=== PATIENT | male | born 1990 | race Caucasian/White ===

== ENCOUNTER 2018-03-06 15:51 | Inpatient (IN) | payer OTHER ==
[2018-03-06 15:52] VITALS: BMI 51.6
[2018-03-06] MEDS ORDERED: Sodium Chloride 0.9% 1,000 ML IV ONE (17:52)
--- NOTE | 2018-03-06 18:01 | C.PDOC ---
History Of Present Illness 27 years old male with PMHx of diverticulitis presents to ED for complaints of LLQ abdominal pain. Patient states he is currently on antibiotics. Patient also reports symptoms have been persistent. Denies fever, or any other complaints. Time Seen by Provider: 03/06/18 17:50 Chief Complaint (Nursing): Abdominal Pain History Per: Patient History/Exam Limitations: no limitations Current Symptoms Are (Timing): Still Present Location Of Pain/Discomfort: LLQ Radiation Of Pain To:: None Associated Symptoms: denies: Fever, Chills, Nausea, Vomiting, Diarrhea Exacerbating Factors: None Alleviating Factors: None Last Bowel Movement: Today Recent travel outside of the [place]: No Past Medical History Reviewed: Historical Data, Nursing Documentation, Vital Signs Vital Signs: Last Vital Signs Temp 98.2 F 03/06/18 16:33 Pulse 85 03/06/18 16:33 Resp 18 03/06/18 16:33 BP Pulse Ox 99 03/06/18 16:33 - Medical History PMH: Diverticulitis Family History: States: Unknown Family Hx - Social History Hx Alcohol Use: No Hx Substance Use: No - Immunization History Hx Tetanus Toxoid Vaccination: No Hx Influenza Vaccination: No Hx Pneumococcal Vaccination: No Review Of Systems Constitutional: Negative for: Fever, Chills Gastrointestinal: Positive for: Abdominal Pain (LLQ ). Negative for: Nausea, Vomiting, Diarrhea Skin: Negative for: Rash Neurological: Negative for: Weakness, Numbness Physical Exam - Physical Exam Appears: Non-toxic, No Acute Distress, Other (Morbidly obese ) Skin: Normal Color, Warm, Dry, No Rash Head: Atraumatic, Normacephalic Eye(s): bilateral: Normal Inspection, PERRL, EOMI Oral Mucosa: Moist Neck: Normal ROM, Supple Chest: Symmetrical, No Tenderness Cardiovascular: Rhythm Regular, No Murmur Respiratory: Normal Breath Sounds, No Rales, No Rhonchi, No Wheezing Gastrointestinal/Abdominal: Soft, Tenderness (LLq ) Extremity: Normal ROM Extremity: Bilateral: Atraumatic, Normal Color And Temperature, Normal ROM Pulses: Left Radial: Normal, Right Radial: Normal Neurological/Psych: Oriented x3, Normal Speech Gait: Steady ED Course And Treatment - Laboratory Results Result Diagrams: 03/06/18 18:41 03/06/18 18:41 O2 Sat by Pulse Oximetry: 99 (RA) Pulse Ox Interpretation: Normal Medical Decision Making Medical Decision Making: diverticulitis- failrue of outpt Plan: * IV Fluids * Tylenol * Blood work * Urinalysis diverticultis failure of outpt needs iv antibiotics Disposition - Disposition Disposition: HOSPITALIZED Disposition Time: 23:54 Condition: STABLE - Clinical Impression Clinical Impression: Diverticulitis - Scribe Statement The provider has reviewed the documentation as recorded by the Deanibe Arin Wray All medical record entries made by the Deanibluis were at my direction and personally dictated by me. I have reviewed the chart and agree that the record accurately reflects my personal performance of the history, physical exam, medical decision making, and the department course for this patient. I have also personally directed, reviewed, and agree with the discharge instructions and disposition. Decision To Admit - Pt Status Changed To: Hospital Disposition Of: Inpatient - Admit Certification Admit to Inpatient:: After my assessment, the patient will require hospitalization for at least two midnights. This is because of the severity of symptoms shown, intensity of services needed, and/or the medical risk in this patient being treated as an outpatient. - InPatient: Physician Admission Certification:: needs iv antibiotics - . Bed Request Type: Regular Admitting Physician: Stefano Perez Patient Diagnosis: Diverticulitis
[2018-03-06] MEDS ORDERED: Sodium Chloride 0.9% 1,000 ML ONE (18:27)
[2018-03-06 18:45] LABS: BASO # 0.1 K/uL (0.0-0.2); BASO % 0.5 % (0.0-2.0); EOS # 0.1 K/uL (0.0-0.7); EOS % 0.5 % (0.0-4.0); HEMOGLOBIN 13.9 g/dL (12.0-18.0); LYMPH # 1.4 K/uL (1.0-4.3); LYMPH % 12.7 % (20.0-40.0); MEAN CELL VOLUME 79.6 fL (80.0-94.0); MEAN CORPUSCULAR HGB CONC 32.6 g/dL (33.0-37.0); MEAN PLATELET VOLUME 7.5 fL (7.2-11.7); MONO # 0.6 K/uL (0.0-0.8); MONO % 5.5 % (0.0-10.0); NEUT # 8.8 K/uL (1.8-7.0); NEUT % 80.8 % (50.0-75.0); RBC 5.35 Mil/uL (4.40-5.90); RED CELL DISTRIBUTION WIDTH 14.5 % (11.5-14.5); WHITE BLOOD COUNT 10.9 K/uL (4.8-10.8)
[2018-03-06 18:53] LABS: INR 1.5
[2018-03-06 19:10] LABS: ALB/GLOB RATIO 1.1 (1.0-2.1); ALT/SGPT 21 U/L (21-72); AST/SGOT 25 U/L (17-59); BLOOD UREA NITROGEN 9 mg/dL (9-20); CALCIUM 8.5 mg/dl (8.6-10.4); GFR NON-AFRICAN AMERICAN > 60; LIPASE 15 U/L (23-300)
[2018-03-06 19:12] LABS: SQUAMOUS EPITHIAL < 1 /hpf (0-5); URINE BILIRUBIN NEGATIVE (NEGATIVE); URINE BLOOD NEGATIVE (NEGATIVE); URINE CLARITY Clear (Clear); URINE COLOR Yellow (YELLOW); URINE GLUCOSE (UA) NORMAL (Normal); URINE LEUKOCYTE ESTERASE TRACE Leu/uL (Negative); URINE PROTEIN NEGATIVE (NEGATIVE); URINE UROBILINOGEN NORMAL mg/dL (0.2-1.0)
[2018-03-06] MEDS ORDERED: Iodixanol 320 MG/ML 100 ML BOTTLE IV ONE (20:08)
[2018-03-06] MEDS ORDERED: Piperacillin/Tazobact 3.375 gm 100 ML IVPB STA (21:13)
[2018-03-06] MEDS ORDERED: Dextrose 5%/0.45% NS 1,000 ML IV ONE (21:35)
[2018-03-06] MEDS ORDERED: Piperacillin/Tazobact 3.375 gm 100 ML IVPB ONE (21:35)
[2018-03-06] MEDS: Dextrose 5%/0.45% NS 1,000 ML IV SCH (21:56)
[2018-03-06] MEDS: Piperacillin/Tazobact 3.375 GM in Sodium Chloride 100 ML IVPB SCH (23:13)
[2018-03-06] MEDS ORDERED: metroNIDAZOLE IV 500 mg/100 ml 500 MG/100 ML BAG ONE (23:20)
[2018-03-06] MEDS: metroNIDAZOLE IV 500 mg/100 ml 500 MG/100 ML BAG IVPB SCH (23:27)
[2018-03-07] MEDS: Dextrose 5%/0.45% NS 1,000 ML IV SCH ×4 (03:04→17:30)
[2018-03-07] MEDS: Piperacillin/Tazobact 3.375 GM in Sodium Chloride 100 ML IVPB SCH ×3 (05:19→21:18)
[2018-03-07] MEDS: metroNIDAZOLE IV 500 mg/100 ml 500 MG/100 ML BAG IVPB SCH ×3 (05:30→21:17)
[2018-03-07 08:20] LABS: BASO % 0.4 % (0.0-2.0); EOS # 0.1 K/uL (0.0-0.7); EOS % 0.7 % (0.0-4.0); HEMOGLOBIN 12.6 g/dL (12.0-18.0); LYMPH # 1.7 K/uL (1.0-4.3); LYMPH % 15.9 % (20.0-40.0); MEAN CORPUSCULAR HEMOGLOBIN 26.1 pg (27.0-31.0); MEAN CORPUSCULAR HGB CONC 33.1 g/dL (33.0-37.0); MEAN PLATELET VOLUME 7.8 fL (7.2-11.7); MONO # 0.8 K/uL (0.0-0.8); NEUT # 7.8 K/uL (1.8-7.0); RBC 4.81 Mil/uL (4.40-5.90); RED CELL DISTRIBUTION WIDTH 14.5 % (11.5-14.5); WHITE BLOOD COUNT 10.4 K/uL (4.8-10.8)
[2018-03-07 08:27] VITALS: RESP 20
--- NOTE | 2018-03-07 08:53 | CT ---
Date of service: 03/06/2018 PROCEDURE: CT Abdomen and Pelvis with contrast HISTORY: llq pain ho of diverticulitis COMPARISON: None. TECHNIQUE: Contrast dose: Radiation dose: Total exam DLP = 1295.45 mGy-cm. This CT exam was performed using one or more of the following dose reduction techniques: Automated exposure control, adjustment of the mA and/or kV according to patient size, and/or use of iterative reconstruction technique. FINDINGS: LOWER THORAX: Unremarkable. LIVER: Unremarkable. No gross lesion or ductal dilatation. GALLBLADDER AND BILE DUCTS: Unremarkable. PANCREAS: Unremarkable. No gross lesion or ductal dilatation. SPLEEN: Unremarkable. ADRENALS: Unremarkable. No mass. KIDNEYS AND URETERS: Unremarkable. No hydronephrosis. No solid mass. VASCULATURE: Unremarkable. No aortic aneurysm. No aortic atherosclerotic calcification or mural plaque present. BOWEL: Extensive sigmoid colon diverticulosis with extensive infiltration in the pericolonic fat consistent with acute diverticulitis. APPENDIX: Normal appendix. PERITONEUM: Unremarkable. No free fluid. No free air. LYMPH NODES: Unremarkable. No enlarged lymph nodes. BLADDER: Unremarkable. REPRODUCTIVE: Unremarkable. BONES: No acute fracture. OTHER FINDINGS: None. IMPRESSION: Extensive sigmoid colon diverticulosis with extensive infiltration in the pericolonic fat consistent with acute diverticulitis.
[2018-03-07 09:05] LABS: ALB/GLOB RATIO 1.1 (1.0-2.1); ALBUMIN 3.4 g/dL (3.5-5.0); ALT/SGPT 22 U/L (21-72); AST/SGOT 20 U/L (17-59); BLOOD UREA NITROGEN 7 mg/dL (9-20); CALCIUM 7.8 mg/dl (8.6-10.4); GFR NON-AFRICAN AMERICAN > 60
--- NOTE | 2018-03-07 12:17 | CP.PCM.HP ---
History of Present Illness - History of Present Illness History of Present Illness: 27 years old male with no previous history complaining of left quadrant pain. Patient presented to [facility] where CAT scan of the abdomen was done which shows diverticulitis of the sigmoid colon. Patient was given by mouth Cipro and Flagyl and discharged home. Patient's pain increased in intensity and severity with crampy diarrhea and patient presented back to [facility]. His repeat CAT scan of the abdomen showed sigmoid diverticulitis with 6 significant sigmoid diverticulosis. Patient is now admitted in [facility] for IV antibiotics and manage acute diverticulitis. Present on Admission - Present on Admission Any Indicators Present on Admission: No Past Patient History - Past Medical History & Family History Past Medical History?: No - Past Social History Smoking Status: Former Smoker - CARDIAC Hx Cardiac Disorders: No - PULMONARY Hx Respiratory Disorders: No Hx Asthma: No - NEUROLOGICAL Hx Neurological Disorder: No - HEENT Hx HEENT Problems: No - RENAL Hx Chronic Kidney Disease: No - ENDOCRINE/METABOLIC Hx Endocrine Disorders: No - HEMATOLOGICAL/ONCOLOGICAL Hx Blood Disorders: No - INTEGUMENTARY Hx Dermatological Problems: No - MUSCULOSKELETAL/RHEUMATOLOGICAL Hx Musculoskeletal Disorders: No Hx Falls: No - GASTROINTESTINAL Hx Diverticulitis: Yes (Diagnosed one week ago) - GENITOURINARY/GYNECOLOGICAL Hx Genitourinary Disorders: No - PSYCHIATRIC Hx Substance Use: No - SURGICAL HISTORY Hx Surgeries: No - ANESTHESIA Hx Anesthesia: No Meds Allergies/Adverse Reactions: Allergies Allergy/AdvReac Type Severity Reaction Status Date / Time No Known Allergies Allergy Verified 03/06/18 16:32 Physical Exam - Constitutional Appears: Well - Head Exam Head Exam: ATRAUMATIC, NORMAL INSPECTION, NORMOCEPHALIC - Eye Exam Eye Exam: EOMI, Normal appearance, PERRL - ENT Exam ENT Exam: Mucous Membranes Moist, Normal Exam - Neck Exam Neck exam: Positive for: Normal Inspection - Respiratory Exam Respiratory Exam: Clear to Auscultation Bilateral, NORMAL BREATHING PATTERN - Cardiovascular Exam Cardiovascular Exam: REGULAR RHYTHM - GI/Abdominal Exam GI & Abdominal Exam: Normal Bowel Sounds, Tenderness (left lower quadrant). absent: Rebound - Rectal Exam Rectal Exam: Deferred - Neurological Exam Neurological exam: Alert, CN II-XII Intact, Normal Gait, Oriented x3, Reflexes Normal - Psychiatric Exam Psychiatric exam: Normal Affect Results - Vital Signs Recent Vital Signs: Last Vital Signs Temp 98.1 F 03/07/18 07:00 Pulse 96 H 03/07/18 07:00 Resp 20 03/07/18 07:00 BP 142/81 03/07/18 07:00 Pulse Ox 100 03/07/18 07:00 - Labs Result Diagrams: 03/07/18 08:00 03/07/18 08:00 Labs: Laboratory Results - last 24 hr 03/06/18 03/06/18 03/06/18 18:41 18:41 18:41 WBC 10.9 H RBC 5.35 Hgb 13.9 Hct 42.6 MCV 79.6 L MCH 26.0 L MCHC 32.6 L RDW 14.5 Plt Count 335 MPV 7.5 Neut % (Auto) 80.8 H Lymph % (Auto) 12.7 L [place] % (Auto) 5.5 Eos % (Auto) 0.5 Baso % (Auto) 0.5 Neut # (Auto) 8.8 H Lymph # (Auto) 1.4 [place] # (Auto) 0.6 Eos # (Auto) 0.1 Baso # (Auto) 0.1 PT 16.0 H INR 1.5 APTT 37 H Sodium 136 Potassium 4.2 Chloride 99 Carbon Dioxide 30 Anion Gap 12 BUN 9 Creatinine 0.6 L Est GFR ( Amer) > 60 Est GFR (Non-Af Amer) > 60 Random Glucose 107 Calcium 8.5 L Total Bilirubin 0.5 AST 25 ALT 21 Alkaline Phosphatase 93 Total Protein 7.6 Albumin 4.0 Globulin 3.7 Albumin/Globulin Ratio 1.1 Lipase 15 L Urine Color Urine Clarity Urine pH Ur Specific [place] Urine Protein Urine Glucose (UA) Urine Ketones Urine Blood Urine Nitrate Urine Bilirubin Urine Urobilinogen Ur Leukocyte Esterase Urine WBC (Auto) Urine RBC (Auto) Ur Squamous Epith Cells 03/06/18 03/07/18 03/07/18 19:07 08:00 08:00 WBC 10.4 RBC 4.81 Hgb 12.6 Hct 38.0 MCV 79.0 L MCH 26.1 L MCHC 33.1 RDW 14.5 Plt Count 298 MPV 7.8 Neut % (Auto) 75.0 Lymph % (Auto) 15.9 L [place] % (Auto) 8.0 Eos % (Auto) 0.7 Baso % (Auto) 0.4 Neut # (Auto) 7.8 H Lymph # (Auto) 1.7 [place] # (Auto) 0.8 Eos # (Auto) 0.1 Baso # (Auto) 0.0 PT INR APTT Sodium 137 Potassium 4.3 Chloride 104 Carbon Dioxide 27 Anion Gap 11 BUN 7 L Creatinine 0.7 L Est GFR ( Amer) > 60 Est GFR (Non-Af Amer) > 60 Random Glucose 102 Calcium 7.8 L Total Bilirubin 0.7 AST 20 ALT 22 Alkaline Phosphatase 73 Total Protein 6.4 Albumin 3.4 L Globulin 3.0 Albumin/Globulin Ratio 1.1 Lipase Urine Color Yellow Urine Clarity Clear Urine pH 5.0 Ur Specific [place] 1.023 Urine Protein Negative Urine Glucose (UA) Normal Urine Ketones Negative Urine Blood Negative Urine Nitrate Negative Urine Bilirubin Negative Urine Urobilinogen Normal Ur Leukocyte Esterase Trace Urine WBC (Auto) 1 Urine RBC (Auto) 1 Ur Squamous Epith Cells < 1 Assessment & Plan (1) Sigmoid diverticulitis Status: Acute (2) Sigmoid diverticulosis Status: Chronic
--- NOTE | 2018-03-07 22:19 | CP.PCM.CON ---
History of Present Illness - History of Present Illness History of Present Illness: INFECTIOUS DISEASE CONSULT; REASON FOR CONSULT;-DIVERTICULITIS, FAILED OUTPATIENT TREATMENT. HPI 27 years old male with no previous history, complaining of left LOWER quadrant pain. Patient presented to [facility] where CAT scan of the abdomen was done which shows diverticulitis of the sigmoid colon. Patient was given by mouth Cipro and Flagyl and discharged home. Patient's pain increased in intensity and severity with crampy diarrhea and patient presented back to [facility]. His repeat CAT scan of the abdomen showed sigmoid diverticulitis with significant sigmoid diverticulosis. Patient is now admitted in [facility] for IV antibiotics and manage acute diverticulitis. PATIENT DENIES HISTORY OF FEVER OR CHILLS. PATIENT DENIES ANY BLACK STOOLS OR MELANOTIC STOOLS. INFECTIOUS DISEASE CONSULTATION REQUESTED BY PMD FOR ACUTE DIVERTICULITIS. PATIENT ALSO GIVES HISTORY OFF SIMILAR SYMPTOMS 2 YEARS AGO WHICH RESOLVED BY THEMSELVES. PATIENT ADMITS THAT HIS DIET IS NOT SO GOOD AND HE HAS BEEN EATING OUTSIDE [facility]. PMH: Diverticulitis Family History: States: Unknown Family Hx - Social History Hx Alcohol Use: No Hx Substance Use: No - Immunization History Hx Tetanus Toxoid Vaccination: No Hx Influenza Vaccination: No Hx Pneumococcal Vaccination: No ALLERGY; NKA Review of Systems - Constitutional Constitutional: absent: Chills, Fever - EENT Eyes: absent: Floaters Nose/Mouth/Throat: Dry Mouth. absent: Mouth Lesions - Cardiovascular Cardiovascular: Dyspnea. absent: Chest Pain - Gastrointestinal Gastrointestinal: Abdominal Pain, Bloating, Cramping, Diarrhea, Excessive Flatus. absent: Nausea, Vomiting - Genitourinary Genitourinary: absent: Dysuria - Neurological Neurological: absent: Dizziness, Headaches - Endocrine Endocrine: absent: Fatigue - Hematologic/Lymphatic Hematologic: As Per HPI. absent: Easy Bleeding, Easy Bruising Past Patient History - Past Medical History & Family History Past Medical History?: No - Past Social History Smoking Status: Former Smoker - CARDIAC Hx Cardiac Disorders: No - PULMONARY Hx Respiratory Disorders: No Hx Asthma: No - NEUROLOGICAL Hx Neurological Disorder: No - HEENT Hx HEENT Problems: No - RENAL Hx Chronic Kidney Disease: No - ENDOCRINE/METABOLIC Hx Endocrine Disorders: No - HEMATOLOGICAL/ONCOLOGICAL Hx Blood Disorders: No - INTEGUMENTARY Hx Dermatological Problems: No - MUSCULOSKELETAL/RHEUMATOLOGICAL Hx Musculoskeletal Disorders: No Hx Falls: No - GASTROINTESTINAL Hx Diverticulitis: Yes (Diagnosed one week ago) - GENITOURINARY/GYNECOLOGICAL Hx Genitourinary Disorders: No - PSYCHIATRIC Hx Substance Use: No - SURGICAL HISTORY Hx Surgeries: No - ANESTHESIA Hx Anesthesia: No Meds Allergies/Adverse Reactions: Allergies Allergy/AdvReac Type Severity Reaction Status Date / Time No Known Allergies Allergy Verified 03/06/18 16:32 - Medications Medications: Current Medications Dextrose/Sodium Chloride (Dextrose 5%/0.45% Ns 1000 Ml) 1,000 mls @ 100 mls/hr IV .Q10H [facility] Last Admin: 03/07/18 13:06 Dose: 100 mls/hr Metronidazole (Flagyl) 500 mg in 100 mls @ 100 mls/hr IVPB Q8H [facility]; Protocol Last Admin: 03/07/18 21:17 Dose: 100 mls/hr Piperacillin Sod/Tazobactam (Sod 3.375 gm/ Sodium Chloride) 100 mls @ 200 mls/hr IVPB Q8H [facility]; Protocol Last Admin: 03/07/18 21:18 Dose: 200 mls/hr Ketorolac Tromethamine (Toradol) 30 mg IVP Q6H PRN PRN Reason: Pain, moderate (4-7) Last Admin: 03/07/18 11:03 Dose: 30 mg Morphine Sulfate (Morphine) 2 mg IVP Q4 PRN PRN Reason: Pain, severe (8-10) Last Admin: 03/07/18 21:12 Dose: 2 mg Physical Exam - Constitutional Appears: No Acute Distress - Head Exam Head Exam: NORMAL INSPECTION - Eye Exam Eye Exam: EOMI, PERRL - ENT Exam ENT Exam: Normal Oropharynx - Neck Exam Neck exam: Positive for: Normal Inspection - Respiratory Exam Respiratory Exam: Clear to Auscultation Bilateral, NORMAL BREATHING PATTERN - Cardiovascular Exam Cardiovascular Exam: REGULAR RHYTHM, +S1, +S2 - GI/Abdominal Exam GI & Abdominal Exam: Diminished Bowel Sounds, Soft, Tenderness (LLQ). absent: Distended, Guarding - Extremities Exam Extremities exam: Positive for: normal capillary refill, pedal pulses present. Negative for: calf tenderness, pedal edema - Neurological Exam Neurological exam: Alert, CN II-XII Intact, Normal Gait, Oriented x3, Reflexes Normal - Psychiatric Exam Psychiatric exam: Normal Mood - Skin Skin Exam: Normal Color, Warm Results - Vital Signs Recent Vital Signs: Last Vital Signs Temp 98.8 F 03/07/18 15:13 Pulse 97 H 03/07/18 15:13 Resp 20 03/07/18 15:13 BP 119/82 03/07/18 15:13 Pulse Ox 96 03/07/18 15:13 - Labs Result Diagrams: 03/08/18 08:07 03/08/18 08:07 Labs: Laboratory Results - last 24 hr 03/07/18 03/07/18 08:00 08:00 WBC 10.4 RBC 4.81 Hgb 12.6 Hct 38.0 MCV 79.0 L MCH 26.1 L MCHC 33.1 RDW 14.5 Plt Count 298 MPV 7.8 Neut % (Auto) 75.0 Lymph % (Auto) 15.9 L [place] % (Auto) 8.0 Eos % (Auto) 0.7 Baso % (Auto) 0.4 Neut # (Auto) 7.8 H Lymph # (Auto) 1.7 [place] # (Auto) 0.8 Eos # (Auto) 0.1 Baso # (Auto) 0.0 Sodium 137 Potassium 4.3 Chloride 104 Carbon Dioxide 27 Anion Gap 11 BUN 7 L Creatinine 0.7 L Est GFR ( Amer) > 60 Est GFR (Non-Af Amer) > 60 Random Glucose 102 Calcium 7.8 L Total Bilirubin 0.7 AST 20 ALT 22 Alkaline Phosphatase 73 Total Protein 6.4 Albumin 3.4 L Globulin 3.0 Albumin/Globulin Ratio 1.1 - Imaging and Cardiology CT scan - abdomen Status: Report reviewed by me (SEE REPORT) Assessment & Plan (1) Sigmoid diverticulitis Status: Acute (2) Diverticulosis large intestine w/o perforation or abscess w/o bleeding Status: Acute (3) Abdominal pain Status: Acute (4) Morbid obesity Status: Acute - Assessment and Plan (Free Text) Plan: PLAN; PANCULTURE; NPO CONTINUE IV ZOSYN 3.375MG IVPB Q8HRLY 03/06/17. CONTINUE IV FLAGYL 500MG IVPB Q8HRLY 03/06/17. STOOLS FOR OB X1 F/U CULTURES TO ADJUST IV ABX. WILL FOLLOW ALONG W YOU. THANKYOU.
[2018-03-08] MEDS: Piperacillin/Tazobact 3.375 GM in Sodium Chloride 100 ML IVPB SCH ×3 (04:49→21:34)
[2018-03-08] MEDS: Dextrose 5%/0.45% NS 1,000 ML IV SCH ×4 (04:51→23:30)
[2018-03-08] MEDS: metroNIDAZOLE IV 500 mg/100 ml 500 MG/100 ML BAG IVPB SCH ×3 (05:58→21:33)
[2018-03-08 08:15] LABS: BASO % 0.3 % (0.0-2.0); EOS # 0.1 K/uL (0.0-0.7); EOS % 1.1 % (0.0-4.0); HEMOGLOBIN 12.9 g/dL (12.0-18.0); LYMPH # 1.9 K/uL (1.0-4.3); LYMPH % 19.7 % (20.0-40.0); MEAN CELL VOLUME 79.3 fL (80.0-94.0); MEAN CORPUSCULAR HGB CONC 32.7 g/dL (33.0-37.0); MEAN PLATELET VOLUME 7.6 fL (7.2-11.7); MONO # 0.8 K/uL (0.0-0.8); MONO % 8.3 % (0.0-10.0); NEUT # 6.7 K/uL (1.8-7.0); NEUT % 70.6 % (50.0-75.0); RBC 4.96 Mil/uL (4.40-5.90); RED CELL DISTRIBUTION WIDTH 14.3 % (11.5-14.5); WHITE BLOOD COUNT 9.5 K/uL (4.8-10.8)
[2018-03-08 08:53] LABS: ALB/GLOB RATIO 1.1 (1.0-2.1); ALBUMIN 3.4 g/dL (3.5-5.0); ALT/SGPT 17 U/L (21-72); AST/SGOT 23 U/L (17-59); BLOOD UREA NITROGEN 5 mg/dL (9-20); CALCIUM 8.2 mg/dl (8.6-10.4); GFR NON-AFRICAN AMERICAN > 60
--- NOTE | 2018-03-08 12:00 | CP.PCM.PN ---
Subjective - Date & Time of Evaluation Date of Evaluation: 03/08/18 Time of Evaluation: 11:59 - Subjective Subjective: CHIEF COMPLAINTS TODAY : Last night patient had increased abdominal pain requiring increased frequency of narcotic IV medication ROS. HEENT : N. Resp : No cough, wheezing ,pleuritic CP ,or hemoptysis Cardio : No anginal CP, PND, orthopnea, palpitation GI : No, n/v ,diarrhea or GI bleeding . PET WALKER : No headache, vertigo, focal deficit. Musculoskel : No joint swelling , Derm : No rash Psych : Normal affect. Ext : No swelling ,calf pain PE. Pt. is alert awake in no distress. V.S As noted in the chart Head ,ear nose,throat and eyes : Normal. Neck : Supple with normal carotids. Lungs: Clear air entry. Heart : S1 & S2 normal with S4. No murmur. Abd : Soft tender left lower quadrant with normal bowel sounds. Neuro : Moves all ext. with no localized deficit. Ext : No edema with intact pulses.Non tender calves Derm : No rashes or decubitus ulcer. LABS/RADIOLOGY: ASSESSMENT/PLAN : Continue IV antibiotics IV fluids and pain management Objective - Vital Signs/Intake and Output Vital Signs (last 24 hours): Temp Pulse Resp BP Pulse Ox 98.3 F 82 20 117/78 95 03/08/18 08:31 03/08/18 08:31 03/08/18 08:31 03/08/18 08:31 03/08/18 08:31 Intake and Output: 03/07/18 03/08/18 23:59 11:59 Intake Total 1900 Balance 1900 - Medications Medications: Current Medications Dextrose/Sodium Chloride (Dextrose 5%/0.45% Ns 1000 Ml) 1,000 mls @ 100 mls/hr IV .Q10H [facility] Last Admin: 03/08/18 04:51 Dose: 100 mls/hr Metronidazole (Flagyl) 500 mg in 100 mls @ 100 mls/hr IVPB Q8H [facility]; Protocol Last Admin: 03/08/18 05:58 Dose: 100 mls/hr Piperacillin Sod/Tazobactam (Sod 3.375 gm/ Sodium Chloride) 100 mls @ 200 mls/hr IVPB Q8H [facility]; Protocol Last Admin: 03/08/18 04:49 Dose: 200 mls/hr Ketorolac Tromethamine (Toradol) 30 mg IVP Q6H PRN PRN Reason: Pain, moderate (4-7) Last Admin: 03/08/18 10:32 Dose: 30 mg Morphine Sulfate (Morphine) 2 mg IVP Q4 PRN PRN Reason: Pain, severe (8-10) Last Admin: 03/07/18 21:12 Dose: 2 mg - Labs Labs: 03/08/18 08:07 03/08/18 08:07 PT 16.0 SECONDS (9.7-12.2) H 03/06/18 18:41 INR 1.5 03/06/18 18:41 APTT 37 SECONDS (21-34) H 03/06/18 18:41 Assessment and Plan (1) Sigmoid diverticulitis Status: Acute (2) Sigmoid diverticulosis Status: Chronic
--- NOTE | 2018-03-08 12:15 | CP.PCM.PN ---
Subjective - Date & Time of Evaluation Date of Evaluation: 03/08/18 Time of Evaluation: 12:14 - Subjective Subjective: CHIEF COMPLAINTS TODAY : AFEBRILE, INTERMITTENT CRAMPY ABDOMINAL PAIN AND BLOATING. Last night patient had increased abdominal pain requiring increased frequency of narcotic IV medication ROS. HEENT : N. Resp : No cough, wheezing ,pleuritic CP ,or hemoptysis Cardio : No anginal CP, PND, orthopnea, palpitation GI : No, n/v ,diarrhea or GI bleeding . ONLINE MEDIA BUYER : No headache, vertigo, focal deficit. Musculoskel : No joint swelling , Derm : No rash Psych : Normal affect. Ext : No swelling ,calf pain PE. Pt. is alert awake in no distress. V.S As noted in the chart Head ,ear nose,throat and eyes : Normal. Neck : Supple with normal carotids. Lungs: Clear air entry. Heart : S1 & S2 normal with S4. No murmur. Abd : SOFT, OBESE, MILD TENDERNESS LEFT LOWER QUADRANT ON DEEP PALPATION nO ORGANOMEGALY APPRECIATED. Neuro : Moves all ext. with no localized deficit. Ext : No edema with intact pulses.Non tender calves Derm : No rashes or decubitus ulcer. LABS/RADIOLOGY: REVIEWED. blood cultures negative for 24 hours. ASSESSMENT ACUTE SIGMOID DIVERTICULITIS. EXTENSIVE DIVERTICULOSIS. MODERATE OBESITY /PLAN : Continue IV zOSYN 3.375 EVERY 8 HOURLY. CONTINUE iv fLAGYL 500 MG iv PIGGYBACK EVERY 8 HOURLY. PATIENT STARTED ON CLEAR LIQUIDS TOLERATED. follow-up cultures. Stools for occult blood. Objective - Vital Signs/Intake and Output Vital Signs (last 24 hours): Temp Pulse Resp BP Pulse Ox 98.3 F 82 20 117/78 95 03/08/18 08:31 03/08/18 08:31 03/08/18 08:31 03/08/18 08:31 03/08/18 08:31 Intake and Output: 03/08/18 03/08/18 06:59 18:59 Intake Total 800 Balance 800 - Medications Medications: Current Medications Dextrose/Sodium Chloride (Dextrose 5%/0.45% Ns 1000 Ml) 1,000 mls @ 100 mls/hr IV .Q10H [facility] Last Admin: 03/08/18 04:51 Dose: 100 mls/hr Metronidazole (Flagyl) 500 mg in 100 mls @ 100 mls/hr IVPB Q8H [facility]; Protocol Last Admin: 03/08/18 05:58 Dose: 100 mls/hr Piperacillin Sod/Tazobactam (Sod 3.375 gm/ Sodium Chloride) 100 mls @ 200 mls/hr IVPB Q8H [facility]; Protocol Last Admin: 03/08/18 04:49 Dose: 200 mls/hr Ketorolac Tromethamine (Toradol) 30 mg IVP Q6H PRN PRN Reason: Pain, moderate (4-7) Last Admin: 03/08/18 10:32 Dose: 30 mg Morphine Sulfate (Morphine) 2 mg IVP Q4 PRN PRN Reason: Pain, severe (8-10) Last Admin: 03/07/18 21:12 Dose: 2 mg - Labs Labs: 03/08/18 08:07 03/08/18 08:07 PT 16.0 SECONDS (9.7-12.2) H 03/06/18 18:41 INR 1.5 03/06/18 18:41 APTT 37 SECONDS (21-34) H 03/06/18 18:41 Assessment and Plan (1) Sigmoid diverticulitis Status: Acute (2) Diverticulosis large intestine w/o perforation or abscess w/o bleeding Status: Acute (3) Abdominal pain Status: Acute (4) Morbid obesity Status: Acute
[2018-03-09] MEDS: Piperacillin/Tazobact 3.375 GM in Sodium Chloride 100 ML IVPB SCH ×3 (04:46→22:30)
[2018-03-09] MEDS: metroNIDAZOLE IV 500 mg/100 ml 500 MG/100 ML BAG IVPB SCH ×3 (05:30→21:07)
[2018-03-09 08:37] LABS: ALB/GLOB RATIO 1.1 (1.0-2.1); ALBUMIN 3.5 g/dL (3.5-5.0); ALT/SGPT 14 U/L (21-72); AST/SGOT 9 U/L (17-59); BLOOD UREA NITROGEN 6 mg/dL (9-20); CALCIUM 8.2 mg/dl (8.6-10.4); GFR NON-AFRICAN AMERICAN > 60
[2018-03-09] MEDS: Dextrose 5%/0.45% NS 1,000 ML IV SCH ×2 (09:27→20:30)
[2018-03-09] MEDS: Enoxaparin 40 mg Syringe SC SCH (09:54)
--- NOTE | 2018-03-09 14:27 | CP.PCM.PN ---
Subjective - Date & Time of Evaluation Date of Evaluation: 03/09/18 Time of Evaluation: 14:27 - Subjective Subjective: CHIEF COMPLAINTS TODAY : patient has less abdominal pain. Afebrile. Tolerating full liquids. ROS. HEENT : N. Resp : No cough, wheezing ,pleuritic CP ,or hemoptysis Cardio : No anginal CP, PND, orthopnea, palpitation GI : No, n/v ,diarrhea or GI bleeding . CHILDREN'S BOOK AUTHOR : No headache, vertigo, focal deficit. Musculoskel : No joint swelling , Derm : No rash Psych : Normal affect. Ext : No swelling ,calf pain PE. Pt. is alert awake in no distress. V.S As noted in the chart Head ,ear nose,throat and eyes : Normal. Neck : Supple with normal carotids. Lungs: Clear air entry. Heart : S1 & S2 normal with S4. No murmur. Abd : Soft tender left lower quadrant with normal bowel sounds. Neuro : Moves all ext. with no localized deficit. Ext : No edema with intact pulses.Non tender calves Derm : No rashes or decubitus ulcer. LABS/RADIOLOGY: ASSESSMENT/PLAN : Continue IV antibiotics IV fluids and pain management Objective - Vital Signs/Intake and Output Vital Signs (last 24 hours): Temp Pulse Resp BP Pulse Ox 98.5 F 72 20 127/81 99 03/09/18 07:00 03/09/18 07:00 03/09/18 07:00 03/09/18 07:00 03/09/18 07:00 - Medications Medications: Current Medications Enoxaparin Sodium (Lovenox) 40 mg SC DAILY [facility] Last Admin: 03/09/18 09:54 Dose: Not Given Dextrose/Sodium Chloride (Dextrose 5%/0.45% Ns 1000 Ml) 1,000 mls @ 100 mls/hr IV .Q10H [facility] Last Admin: 03/09/18 09:27 Dose: 100 mls/hr Metronidazole (Flagyl) 500 mg in 100 mls @ 100 mls/hr IVPB Q8H [facility]; Protocol Last Admin: 03/09/18 12:56 Dose: 100 mls/hr Piperacillin Sod/Tazobactam (Sod 3.375 gm/ Sodium Chloride) 100 mls @ 200 mls/hr IVPB Q8H [facility]; Protocol Last Admin: 03/09/18 12:55 Dose: 200 mls/hr Morphine Sulfate (Morphine) 2 mg IVP Q4 PRN PRN Reason: Pain, severe (8-10) Last Admin: 03/07/18 21:12 Dose: 2 mg - Labs Labs: 03/08/18 08:07 03/09/18 08:00 PT 16.0 SECONDS (9.7-12.2) H 03/06/18 18:41 INR 1.5 03/06/18 18:41 APTT 37 SECONDS (21-34) H 03/06/18 18:41 Assessment and Plan (1) Sigmoid diverticulitis Status: Acute (2) Sigmoid diverticulosis Status: Chronic
--- NOTE | 2018-03-09 23:46 | CP.PCM.PN ---
Subjective - Date & Time of Evaluation Date of Evaluation: 03/09/18 Time of Evaluation: 23:46 - Subjective Subjective: CHIEF COMPLAINTS TODAY : AFEBRILE, denies abdominal pain. ON CLEAR LIQUIDS ROS. HEENT : N. Resp : No cough, wheezing ,pleuritic CP ,or hemoptysis Cardio : No anginal CP, PND, orthopnea, palpitation GI : No, n/v ,diarrhea or GI bleeding . PROSTHETICS TECHNICIAN : No headache, vertigo, focal deficit. Musculoskel : No joint swelling , Derm : No rash Psych : Normal affect. Ext : No swelling ,calf pain PE. Pt. is alert awake in no distress. V.S As noted in the chart Head ,ear nose,throat and eyes : Normal. Neck : Supple with normal carotids. Lungs: Clear air entry. Heart : S1 & S2 normal with S4. No murmur. Abd : SOFT, OBESE, MILD TENDERNESS LEFT LOWER QUADRANT ON DEEP PALPATION nO ORGANOMEGALY APPRECIATED. Neuro : Moves all ext. with no localized deficit. Ext : No edema with intact pulses.Non tender calves Derm : No rashes or decubitus ulcer. LABS/RADIOLOGY: REVIEWED. blood cultures negative for 24 hours. ASSESSMENT ACUTE SIGMOID DIVERTICULITIS. EXTENSIVE DIVERTICULOSIS. MODERATE OBESITY /PLAN : Continue IV zOSYN 3.375 EVERY 8 HOURLY. CONTINUE iv fLAGYL 500 MG iv PIGGYBACK EVERY 8 HOURLY. PATIENT ON CLEAR LIQUIDS TOLERATED. follow-up cultures. Stools for occult blood.-P CASE DISCUSSED WITH MOTHER. Objective - Vital Signs/Intake and Output Vital Signs (last 24 hours): Temp Pulse Resp BP Pulse Ox 97.6 F 78 20 112/72 96 03/09/18 15:50 03/09/18 15:50 03/09/18 15:50 03/09/18 15:50 03/09/18 15:50 Intake and Output: 03/09/18 03/10/18 18:59 06:59 Intake Total 1200 Balance 1200 - Medications Medications: Current Medications Enoxaparin Sodium (Lovenox) 40 mg SC DAILY [facility] Last Admin: 03/09/18 09:54 Dose: Not Given Metronidazole (Flagyl) 500 mg in 100 mls @ 100 mls/hr IVPB Q8H [facility]; Protocol Last Admin: 03/09/18 21:07 Dose: 100 mls/hr Piperacillin Sod/Tazobactam (Sod 3.375 gm/ Sodium Chloride) 100 mls @ 200 mls/hr IVPB Q8H [facility]; Protocol Last Admin: 03/09/18 22:30 Dose: 200 mls/hr Morphine Sulfate (Morphine) 2 mg IVP Q4 PRN PRN Reason: Pain, severe (8-10) Last Admin: 03/07/18 21:12 Dose: 2 mg - Labs Labs: 03/08/18 08:07 03/09/18 08:00 PT 16.0 SECONDS (9.7-12.2) H 03/06/18 18:41 INR 1.5 03/06/18 18:41 APTT 37 SECONDS (21-34) H 03/06/18 18:41 Assessment and Plan (1) Sigmoid diverticulitis Status: Acute (2) Diverticulosis large intestine w/o perforation or abscess w/o bleeding Status: Acute (3) Abdominal pain Status: Acute (4) Morbid obesity Status: Acute
[2018-03-10] MEDS: Piperacillin/Tazobact 3.375 GM in Sodium Chloride 100 ML IVPB SCH ×3 (04:45→21:44)
[2018-03-10] MEDS: metroNIDAZOLE IV 500 mg/100 ml 500 MG/100 ML BAG IVPB SCH ×3 (05:25→21:43)
[2018-03-10] MEDS: Enoxaparin 40 mg Syringe SC SCH (09:05)
--- NOTE | 2018-03-10 11:20 | CP.PCM.PN ---
Subjective - Date & Time of Evaluation Date of Evaluation: 03/10/18 Time of Evaluation: : - Subjective Subjective: CHIEF COMPLAINTS TODAY : patient has less abdominal pain. Afebrile. Tolerating full liquids. ROS. HEENT : N. Resp : No cough, wheezing ,pleuritic CP ,or hemoptysis Cardio : No anginal CP, PND, orthopnea, palpitation GI : No, n/v ,diarrhea or GI bleeding . LAUNDRY ROUTEMAN : No headache, vertigo, focal deficit. Musculoskel : No joint swelling , Derm : No rash Psych : Normal affect. Ext : No swelling ,calf pain PE. Pt. is alert awake in no distress. V.S As noted in the chart Head ,ear nose,throat and eyes : Normal. Neck : Supple with normal carotids. Lungs: Clear air entry. Heart : S1 & S2 normal with S4. No murmur. Abd : Soft tender left lower quadrant with normal bowel sounds. Neuro : Moves all ext. with no localized deficit. Ext : No edema with intact pulses.Non tender calves Derm : No rashes or decubitus ulcer. LABS/RADIOLOGY: ASSESSMENT/PLAN : Continue IV antibiotics IV fluids and pain management repeat CT of the abdor follow-up of diverticulitis Objective - Vital Signs/Intake and Output Vital Signs (last 24 hours): Temp Pulse Resp BP Pulse Ox 97.6 F 63 20 118/76 100 03/10/18 07:00 03/10/18 07:00 03/10/18 07:00 03/10/18 07:00 03/10/18 07:00 Intake and Output: 03/09/18 03/10/18 23:59 11:59 Intake Total 2360 Balance 2360 - Medications Medications: Current Medications Enoxaparin Sodium (Lovenox) 40 mg SC DAILY [facility] Last Admin: 03/10/18 09:05 Dose: Not Given Metronidazole (Flagyl) 500 mg in 100 mls @ 100 mls/hr IVPB Q8H [facility]; Protocol Last Admin: 03/10/18 05:25 Dose: 100 mls/hr Piperacillin Sod/Tazobactam (Sod 3.375 gm/ Sodium Chloride) 100 mls @ 200 mls/hr IVPB Q8H [facility]; Protocol Last Admin: 03/10/18 04:45 Dose: 200 mls/hr Morphine Sulfate (Morphine) 2 mg IVP Q4 PRN PRN Reason: Pain, severe (8-10) Last Admin: 03/07/18 21:12 Dose: 2 mg - Labs Labs: 03/08/18 08:07 03/09/18 08:00 PT 16.0 SECONDS (9.7-12.2) H 03/06/18 18:41 INR 1.5 03/06/18 18:41 APTT 37 SECONDS (21-34) H 03/06/18 18:41 Assessment and Plan (1) Sigmoid diverticulitis Status: Acute (2) Sigmoid diverticulosis Status: Chronic
[2018-03-10 11:22] LABS: ALB/GLOB RATIO 1.1 (1.0-2.1); ALBUMIN 3.6 g/dL (3.5-5.0); ALT/SGPT 17 U/L (21-72); AST/SGOT 37 U/L (17-59); BLOOD UREA NITROGEN 5 mg/dL (9-20); CALCIUM 8.6 mg/dl (8.6-10.4); GFR NON-AFRICAN AMERICAN > 60
[2018-03-10] MEDS ORDERED: Iohexol 240 (50 ml) PO ONE (13:00)
--- NOTE | 2018-03-10 15:55 | CT ---
Date of service: 03/10/2018 PROCEDURE: CT Abdomen and Pelvis without intravenous contrast HISTORY: f/u diverticulitis COMPARISON: 03/06/2018 TECHNIQUE: Without contrast.. Contrast dose: 0 Radiation dose: Total exam DLP = 1319.24 mGy-cm. This CT exam was performed using one or more of the following dose reduction techniques: Automated exposure control, adjustment of the mA and/or kV according to patient size, and/or use of iterative reconstruction technique. FINDINGS: LOWER THORAX: Unremarkable. LIVER: Unremarkable. No gross lesion or ductal dilatation. GALLBLADDER AND BILE DUCTS: Unremarkable. PANCREAS: Unremarkable. No gross lesion or ductal dilatation. SPLEEN: Unremarkable. ADRENALS: Unremarkable. No mass. KIDNEYS AND URETERS: Unremarkable. No hydronephrosis. No solid mass. VASCULATURE: Unremarkable. No aortic aneurysm. No aortic atherosclerotic calcification or mural plaque present. BOWEL: Acute sigmoid diverticulitis significantly unchanged from prior examination of 03/06/2018. No intramural abscess. No paracolic abscess. APPENDIX: Normal appendix PERITONEUM: Unremarkable. No free fluid. No free air. LYMPH NODES: Shotty subcentimeter lymph nodes are seen in the small bowel mesentery and in the right lower quadrant of the abdomen. Nonspecific likely reactive secondary to the sigmoid diverticulitis. BLADDER: Unremarkable. REPRODUCTIVE: Normal prostate BONES: Mild anterior wedge deformity of the T 11 vertebral body of indeterminate chronicity. This is unchanged in appearance compared to 03/06/2018. Possible mild old compression deformity. No bony retropulsion. OTHER FINDINGS: None. IMPRESSION: Acute sigmoid diverticulitis without evidence of abscess or free air. Shotty mesenteric lymph nodes, nonspecific. Incidentally noted mild anterior wedge compression deformity of the T11 vertebra, age indeterminate. See above. A wet
--- NOTE | 2018-03-10 20:23 | CP.PCM.PN ---
Subjective - Date & Time of Evaluation Date of Evaluation: 03/10/18 Time of Evaluation: 20:23 - Subjective Subjective: CHIEF COMPLAINTS TODAY : AFEBRILE, C/O INTERMITTENT abdominal CRAMPS TOLERATING CLEAR LIQUIDS WENT FOR CT ABDOMEN REPEAT TODAY ROS. HEENT : N. Resp : No cough, wheezing ,pleuritic CP ,or hemoptysis Cardio : No anginal CP, PND, orthopnea, palpitation GI : No, n/v ,diarrhea or GI bleeding . GRASS CUTTER : No headache, vertigo, focal deficit. Musculoskel : No joint swelling , Derm : No rash Psych : Normal affect. Ext : No swelling ,calf pain PE. Pt. is alert awake in no distress. V.S As noted in the chart Head ,ear nose,throat and eyes : Normal. Neck : Supple with normal carotids. Lungs: Clear air entry. Heart : S1 & S2 normal with S4. No murmur. Abd : SOFT, OBESE, MILD TENDERNESS LEFT LOWER QUADRANT ON DEEP PALPATION nO ORGANOMEGALY APPRECIATED. Neuro : Moves all ext. with no localized deficit. Ext : No edema with intact pulses.Non tender calves Derm : No rashes or decubitus ulcer. LABS/RADIOLOGY: REVIEWED. blood cultures negative for 4 DAYS ASSESSMENT ACUTE SIGMOID DIVERTICULITIS. EXTENSIVE DIVERTICULOSIS. MODERATE OBESITY /PLAN : Continue IV zOSYN 3.375 EVERY 8 HOURLY. CONTINUE iv fLAGYL 500 MG iv PIGGYBACK EVERY 8 HOURLY. PATIENT ON CLEAR LIQUIDS TOLERATED. follow-up REPEAT CT SCAN ABDOMEN /PELVIS. Stools for occult blood CASE DISCUSSED WITH MOTHER. Objective - Vital Signs/Intake and Output Vital Signs (last 24 hours): Temp Pulse Resp BP Pulse Ox 97.8 F 67 20 120/77 98 03/10/18 15:00 03/10/18 15:00 03/10/18 15:00 03/10/18 15:00 03/10/18 15:00 Intake and Output: 03/10/18 03/11/18 18:59 06:59 Intake Total 700 Balance 700 - Medications Medications: Current Medications Enoxaparin Sodium (Lovenox) 40 mg SC DAILY [facility] Last Admin: 03/10/18 09:05 Dose: Not Given Metronidazole (Flagyl) 500 mg in 100 mls @ 100 mls/hr IVPB Q8H [facility]; Protocol Last Admin: 03/10/18 13:18 Dose: 100 mls/hr Piperacillin Sod/Tazobactam (Sod 3.375 gm/ Sodium Chloride) 100 mls @ 200 mls/hr IVPB Q8H [facility]; Protocol Last Admin: 03/10/18 13:18 Dose: 200 mls/hr Morphine Sulfate (Morphine) 2 mg IVP Q4 PRN PRN Reason: Pain, severe (8-10) Last Admin: 03/07/18 21:12 Dose: 2 mg - Labs Labs: 03/08/18 08:07 03/10/18 07:56 PT 16.0 SECONDS (9.7-12.2) H 03/06/18 18:41 INR 1.5 03/06/18 18:41 APTT 37 SECONDS (21-34) H 03/06/18 18:41 Assessment and Plan (1) Sigmoid diverticulitis Status: Acute (2) Diverticulosis large intestine w/o perforation or abscess w/o bleeding Status: Acute (3) Abdominal pain Status: Acute (4) Morbid obesity Status: Acute
[2018-03-11] MEDS: metroNIDAZOLE IV 500 mg/100 ml 500 MG/100 ML BAG IVPB SCH ×3 (04:33→20:53)
[2018-03-11] MEDS: Piperacillin/Tazobact 3.375 GM in Sodium Chloride 100 ML IVPB SCH ×3 (05:55→20:52)
[2018-03-11 09:38] LABS: ALB/GLOB RATIO 1.1 (1.0-2.1); ALBUMIN 3.7 g/dL (3.5-5.0); ALT/SGPT 20 U/L (21-72); AST/SGOT 39 U/L (17-59); BLOOD UREA NITROGEN 5 mg/dL (9-20); CALCIUM 8.6 mg/dl (8.6-10.4); GFR NON-AFRICAN AMERICAN > 60
[2018-03-11] MEDS: Enoxaparin 40 mg Syringe SC SCH (10:49)
--- NOTE | 2018-03-11 13:05 | CP.PCM.PN ---
Subjective - Date & Time of Evaluation Date of Evaluation: 03/11/18 Time of Evaluation: 13:04 - Subjective Subjective: CHIEF COMPLAINTS TODAY : patient has less abdominal pain. Afebrile. Tolerating full liquids. ROS. HEENT : N. Resp : No cough, wheezing ,pleuritic CP ,or hemoptysis Cardio : No anginal CP, PND, orthopnea, palpitation GI : No, n/v ,diarrhea or GI bleeding . VEGETABLE SORTER : No headache, vertigo, focal deficit. Musculoskel : No joint swelling , Derm : No rash Psych : Normal affect. Ext : No swelling ,calf pain PE. Pt. is alert awake in no distress. V.S As noted in the chart Head ,ear nose,throat and eyes : Normal. Neck : Supple with normal carotids. Lungs: Clear air entry. Heart : S1 & S2 normal with S4. No murmur. Abd : Soft tender left lower quadrant with normal bowel sounds. Neuro : Moves all ext. with no localized deficit. Ext : No edema with intact pulses.Non tender calves Derm : No rashes or decubitus ulcer. LABS/RADIOLOGY: ASSESSMENT/PLAN : Continue IV antibiotics IV fluids and pain management Repeat CAT scan of the abdomen shows acute diverticulitis in the sigmoid region no evidence of free air or abscess formation. We will continue 48 hours of antibiotics. Objective - Vital Signs/Intake and Output Vital Signs (last 24 hours): Temp Pulse Resp BP Pulse Ox 98.8 F 73 20 141/72 100 03/11/18 08:47 03/11/18 08:47 03/11/18 08:47 03/11/18 08:47 03/11/18 08:47 - Medications Medications: Current Medications Enoxaparin Sodium (Lovenox) 40 mg SC DAILY [facility] Last Admin: 03/11/18 10:49 Dose: Not Given Metronidazole (Flagyl) 500 mg in 100 mls @ 100 mls/hr IVPB Q8H [facility]; Protocol Last Admin: 03/11/18 04:33 Dose: 100 mls/hr Piperacillin Sod/Tazobactam (Sod 3.375 gm/ Sodium Chloride) 100 mls @ 200 mls/hr IVPB Q8H [facility]; Protocol Last Admin: 03/11/18 05:55 Dose: 200 mls/hr Morphine Sulfate (Morphine) 2 mg IVP Q4 PRN PRN Reason: Pain, severe (8-10) Last Admin: 03/07/18 21:12 Dose: 2 mg - Labs Labs: 03/08/18 08:07 03/11/18 06:38 PT 16.0 SECONDS (9.7-12.2) H 03/06/18 18:41 INR 1.5 03/06/18 18:41 APTT 37 SECONDS (21-34) H 03/06/18 18:41 Assessment and Plan (1) Sigmoid diverticulitis Status: Acute (2) Sigmoid diverticulosis Status: Chronic
--- NOTE | 2018-03-11 21:59 | CP.PCM.PN ---
Subjective - Date & Time of Evaluation Date of Evaluation: 03/11/18 Time of Evaluation: 21:59 - Subjective Subjective: CHIEF COMPLAINTS TODAY : AFEBRILE, ON CLEAR LIQUIDS. ROS. HEENT : N. Resp : No cough, wheezing ,pleuritic CP ,or hemoptysis Cardio : No anginal CP, PND, orthopnea, palpitation GI : No, n/v ,diarrhea or GI bleeding . DIRECTOR TRANSPORTATION : No headache, vertigo, focal deficit. Musculoskel : No joint swelling , Derm : No rash Psych : Normal affect. Ext : No swelling ,calf pain PE. Pt. is alert awake in no distress. V.S As noted in the chart Head ,ear nose,throat and eyes : Normal. Neck : Supple with normal carotids. Lungs: Clear air entry. Heart : S1 & S2 normal with S4. No murmur. Abd : SOFT, OBESE, MILD TENDERNESS LEFT LOWER QUADRANT ON DEEP PALPATION nO ORGANOMEGALY APPRECIATED. Neuro : Moves all ext. with no localized deficit. Ext : No edema with intact pulses.Non tender calves Derm : No rashes or decubitus ulcer. LABS/RADIOLOGY: REVIEWED. blood cultures negative for [address] ABDOMEN REPEAT SHOWS ACUTE SIGMOID DIVERTICULITIS ,-VE ABSCESS/ OR FREE AIR ASSESSMENT ACUTE SIGMOID DIVERTICULITIS. EXTENSIVE DIVERTICULOSIS. MODERATE OBESITY /PLAN : Continue IV ZOSYN 3.375 EVERY 8 HOURLY. 03/07/18 CONTINUE iv fLAGYL 500 MG iv PIGGYBACK EVERY 8 HOURLY.03/07/18 CONTINUE IV ABX X NEXT 48HRS, TO SWITCH TO PO CIPRO/FLAGYL X 1O DAYS STARTING TUESDAY. ADVANCE DIET PER PMD. Objective - Vital Signs/Intake and Output Vital Signs (last 24 hours): Temp Pulse Resp BP Pulse Ox 97.9 F 75 20 115/80 98 03/11/18 15:00 03/11/18 15:00 03/11/18 15:00 03/11/18 15:00 03/11/18 15:00 Intake and Output: 03/11/18 03/12/18 18:59 06:59 Intake Total 550 Balance 550 - Medications Medications: Current Medications Enoxaparin Sodium (Lovenox) 40 mg SC DAILY [facility] Last Admin: 03/11/18 10:49 Dose: Not Given Metronidazole (Flagyl) 500 mg in 100 mls @ 100 mls/hr IVPB Q8H [facility]; Protocol Last Admin: 03/11/18 20:53 Dose: 100 mls/hr Piperacillin Sod/Tazobactam (Sod 3.375 gm/ Sodium Chloride) 100 mls @ 200 mls/hr IVPB Q8H [facility]; Protocol Last Admin: 03/11/18 20:52 Dose: 200 mls/hr Morphine Sulfate (Morphine) 2 mg IVP Q4 PRN PRN Reason: Pain, severe (8-10) Last Admin: 03/07/18 21:12 Dose: 2 mg - Labs Labs: 03/08/18 08:07 03/11/18 06:38 PT 16.0 SECONDS (9.7-12.2) H 03/06/18 18:41 INR 1.5 03/06/18 18:41 APTT 37 SECONDS (21-34) H 03/06/18 18:41 Assessment and Plan (1) Sigmoid diverticulitis Status: Acute (2) Diverticulosis large intestine w/o perforation or abscess w/o bleeding Status: Acute (3) Abdominal pain Status: Acute (4) Morbid obesity Status: Acute
[2018-03-12] MEDS: Piperacillin/Tazobact 3.375 GM in Sodium Chloride 100 ML IVPB SCH ×3 (04:40→21:39)
[2018-03-12] MEDS: metroNIDAZOLE IV 500 mg/100 ml 500 MG/100 ML BAG IVPB SCH ×3 (05:17→21:40)
[2018-03-12 08:26] LABS: ALB/GLOB RATIO 1.1 (1.0-2.1); ALBUMIN 3.7 g/dL (3.5-5.0); ALT/SGPT 23 U/L (21-72); AST/SGOT 20 U/L (17-59); BLOOD UREA NITROGEN 7 mg/dL (9-20); CALCIUM 8.2 mg/dl (8.6-10.4); GFR NON-AFRICAN AMERICAN > 60
[2018-03-12] MEDS: Enoxaparin 40 mg Syringe SC SCH (09:58)
--- NOTE | 2018-03-12 16:00 | CP.PCM.PN ---
Subjective - Date & Time of Evaluation Date of Evaluation: 03/12/18 Time of Evaluation: 16:00 - Subjective Subjective: Pain is improving Advance diet Objective - Vital Signs/Intake and Output Vital Signs (last 24 hours): Temp Pulse Resp BP Pulse Ox 98.1 F 56 L 20 120/76 99 03/12/18 09:29 03/12/18 09:29 03/12/18 09:29 03/12/18 09:29 03/12/18 09:29 Intake and Output: 03/12/18 03/12/18 11:59 23:59 Intake Total 800 Balance 800 - Medications Medications: Current Medications Enoxaparin Sodium (Lovenox) 40 mg SC DAILY [facility] Last Admin: 03/12/18 09:58 Dose: Not Given Metronidazole (Flagyl) 500 mg in 100 mls @ 100 mls/hr IVPB Q8H [facility]; Protocol Last Admin: 03/12/18 12:33 Dose: 100 mls/hr Piperacillin Sod/Tazobactam (Sod 3.375 gm/ Sodium Chloride) 100 mls @ 200 mls/hr IVPB Q8H [facility]; Protocol Last Admin: 03/12/18 12:33 Dose: 200 mls/hr Morphine Sulfate (Morphine) 2 mg IVP Q4 PRN PRN Reason: Pain, severe (8-10) Last Admin: 03/07/18 21:12 Dose: 2 mg - Labs Labs: 03/08/18 08:07 03/12/18 07:50 PT 16.0 SECONDS (9.7-12.2) H 03/06/18 18:41 INR 1.5 03/06/18 18:41 APTT 37 SECONDS (21-34) H 03/06/18 18:41 Assessment and Plan (1) Sigmoid diverticulitis Status: Acute (2) Sigmoid diverticulosis Status: Chronic
--- NOTE | 2018-03-12 22:50 | CP.PCM.PN ---
Subjective - Date & Time of Evaluation Date of Evaluation: 03/12/18 Time of Evaluation: 22:50 - Subjective Subjective: AFEBRILE, ABDOMINAL PAIN IS IMPROVING. ON IV ABX ADVANCING DIET. Objective - Vital Signs/Intake and Output Vital Signs (last 24 hours): Temp Pulse Resp BP Pulse Ox 98.3 F 67 20 121/78 98 03/12/18 15:30 03/12/18 15:30 03/12/18 15:30 03/12/18 15:30 03/12/18 15:30 Intake and Output: 03/12/18 03/13/18 18:59 06:59 Intake Total 800 Balance 800 - Medications Medications: Current Medications Enoxaparin Sodium (Lovenox) 40 mg SC DAILY [facility] Last Admin: 03/12/18 09:58 Dose: Not Given Metronidazole (Flagyl) 500 mg in 100 mls @ 100 mls/hr IVPB Q8H [facility]; Protocol Last Admin: 03/12/18 21:40 Dose: 100 mls/hr Piperacillin Sod/Tazobactam (Sod 3.375 gm/ Sodium Chloride) 100 mls @ 200 mls/hr IVPB Q8H [facility]; Protocol Last Admin: 03/12/18 21:39 Dose: 200 mls/hr Morphine Sulfate (Morphine) 2 mg IVP Q4 PRN PRN Reason: Pain, severe (8-10) Last Admin: 03/07/18 21:12 Dose: 2 mg - Labs Labs: 03/08/18 08:07 03/12/18 07:50 PT 16.0 SECONDS (9.7-12.2) H 03/06/18 18:41 INR 1.5 03/06/18 18:41 APTT 37 SECONDS (21-34) H 03/06/18 18:41 - Constitutional Appears: No Acute Distress - Head Exam Head Exam: NORMAL INSPECTION - Eye Exam Eye Exam: EOMI, PERRL - ENT Exam ENT Exam: Normal Oropharynx - Neck Exam Neck Exam: Normal Inspection - Respiratory Exam Respiratory Exam: Clear to Ausculation Bilateral - Cardiovascular Exam Cardiovascular Exam: REGULAR RHYTHM, +S1, +S2 - GI/Abdominal Exam GI & Abdominal Exam: Soft, Normal Bowel Sounds. absent: Tenderness - Extremities Exam Extremities Exam: Normal Capillary Refill. absent: Calf Tenderness, Pedal Edema - Neurological Exam Neurological Exam: Alert, Awake, CN II-XII Intact, Normal Gait, Oriented x3, Reflexes Normal - Psychiatric Exam Psychiatric exam: Normal Mood - Skin Skin Exam: Normal Color, Warm Assessment and Plan (1) Sigmoid diverticulitis Status: Acute (2) Diverticulosis large intestine w/o perforation or abscess w/o bleeding Status: Acute (3) Abdominal pain Status: Acute (4) Morbid obesity Status: Acute - Assessment and Plan (Free Text) Assessment: ASSESSMENT ACUTE SIGMOID DIVERTICULITIS. EXTENSIVE DIVERTICULOSIS. MODERATE OBESITY /PLAN : Continue IV ZOSYN 3.375 EVERY 8 HOURLY. 03/07/18 CONTINUE iv fLAGYL 500 MG iv PIGGYBACK EVERY 8 HOURLY.03/07/18 CONTINUE IV ABX . TO SWITCH TO PO CIPRO/FLAGYL X 1O DAYS STARTING TUESDAY. ADVANCE DIET PER PMD.
[2018-03-13] MEDS: Piperacillin/Tazobact 3.375 GM in Sodium Chloride 100 ML IVPB SCH ×2 (04:34→12:30)
[2018-03-13] MEDS: metroNIDAZOLE IV 500 mg/100 ml 500 MG/100 ML BAG IVPB SCH ×2 (05:08→12:30)
[2018-03-13 07:57] LABS: ALB/GLOB RATIO 1.1 (1.0-2.1); ALBUMIN 3.6 g/dL (3.5-5.0); ALT/SGPT 26 U/L (21-72); AST/SGOT 29 U/L (17-59); BLOOD UREA NITROGEN 8 mg/dL (9-20); CALCIUM 8.2 mg/dl (8.6-10.4); GFR NON-AFRICAN AMERICAN > 60
[2018-03-13 07:58] VITALS: BP 128/86; PULSE 58; TEMP 98; O2SAT 97
[2018-03-13] MEDS: Enoxaparin 40 mg Syringe SC SCH (11:13)
--- NOTE | 2018-03-13 11:17 | CP.PCM.PN ---
Subjective - Date & Time of Evaluation Date of Evaluation: 03/13/18 Time of Evaluation: 11:17 - Subjective Subjective: AFEBRILE, DENIES ABDOMINAL PAIN TOLERATING REGULAR DIET. Objective - Vital Signs/Intake and Output Vital Signs (last 24 hours): Temp Pulse Resp BP Pulse Ox 98 F 58 L 20 128/86 97 03/13/18 07:00 03/13/18 07:00 03/13/18 07:00 03/13/18 07:00 03/13/18 07:00 Intake and Output: 03/13/18 03/13/18 06:59 18:59 Intake Total 500 Balance 500 - Medications Medications: Current Medications Enoxaparin Sodium (Lovenox) 40 mg SC DAILY [facility] Last Admin: 03/13/18 11:13 Dose: Not Given Metronidazole (Flagyl) 500 mg in 100 mls @ 100 mls/hr IVPB Q8H [facility]; Protocol Last Admin: 03/13/18 05:08 Dose: 100 mls/hr Piperacillin Sod/Tazobactam (Sod 3.375 gm/ Sodium Chloride) 100 mls @ 200 mls/hr IVPB Q8H [facility]; Protocol Last Admin: 03/13/18 04:34 Dose: 200 mls/hr Morphine Sulfate (Morphine) 2 mg IVP Q4 PRN PRN Reason: Pain, severe (8-10) Last Admin: 03/07/18 21:12 Dose: 2 mg - Labs Labs: 03/08/18 08:07 03/13/18 07:07 PT 16.0 SECONDS (9.7-12.2) H 03/06/18 18:41 INR 1.5 03/06/18 18:41 APTT 37 SECONDS (21-34) H 03/06/18 18:41 - Constitutional Appears: No Acute Distress - Head Exam Head Exam: NORMAL INSPECTION - Eye Exam Eye Exam: EOMI, PERRL - ENT Exam ENT Exam: Normal Oropharynx - Neck Exam Neck Exam: Normal Inspection - Respiratory Exam Respiratory Exam: Clear to Ausculation Bilateral - Cardiovascular Exam Cardiovascular Exam: REGULAR RHYTHM, +S1, +S2 - GI/Abdominal Exam GI & Abdominal Exam: Soft, Normal Bowel Sounds. absent: Tenderness - Extremities Exam Extremities Exam: Normal Capillary Refill. absent: Calf Tenderness, Pedal Edema - Neurological Exam Neurological Exam: Alert, Awake, CN II-XII Intact, Oriented x3, Reflexes Normal - Psychiatric Exam Psychiatric exam: Normal Mood - Skin Skin Exam: Normal Color, Warm Assessment and Plan (1) Sigmoid diverticulitis Status: Acute (2) Diverticulosis large intestine w/o perforation or abscess w/o bleeding Status: Acute (3) Abdominal pain Status: Acute (4) Morbid obesity Status: Acute - Assessment and Plan (Free Text) Plan: ASSESSMENT ACUTE SIGMOID DIVERTICULITIS. EXTENSIVE DIVERTICULOSIS. MODERATE OBESITY /PLAN : DC IV ZOSYN 3.375 EVERY 8 HOURLY. 03/07/18 DC iv fLAGYL 500 MG iv PIGGYBACK EVERY 8 HOURLY.03/07/18 SWITCH TO PO CIPRO/FLAGYL X 1O DAYS STARTING TUESDAY. CASE DISCUSSED W MS MANUEL ODELL. F/U OPD.
--- NOTE | 2018-03-13 11:42 | CP.PCM.DIS ---
Provider - Provider Date of Admission: 03/06/18 21:19 Attending physician: Stefano Perez MD Consults: 03/07/18 12:18 Infectious Disease Consult Routine Comment: Consulting Provider: Rolf Temple Consulting Physician: Rolf Temple Reason for Consult: acute sigmoid diverticulitis for IV antibiotics Time Spent in preparation of Discharge (in minutes): 35 Diagnosis - Discharge Diagnosis (1) Sigmoid diverticulitis Status: Acute (2) Sigmoid diverticulosis Status: Chronic Hospital Course - Lab Results Lab Results: Micro Results 03/06/18 21:30 Blood-Venous Blood Culture - Final NO GROWTH AFTER 5 DAYS 03/06/18 21:30 Blood-Venous Gram Stain - Final TEST NOT PERFORMED 03/06/18 21:45 Blood-Venous Blood Culture - Final NO GROWTH AFTER 5 DAYS 03/06/18 21:45 Blood-Venous Gram Stain - Final TEST NOT PERFORMED Most Recent Lab Values WBC 9.5 K/uL (4.8-10.8) 03/08/18 08:07 RBC 4.96 Mil/uL (4.40-5.90) 03/08/18 08:07 Hgb 12.9 g/dL (12.0-18.0) 03/08/18 08:07 Hct 39.3 % (35.0-51.0) 03/08/18 08:07 MCV 79.3 fL (80.0-94.0) L 03/08/18 08:07 MCH 26.0 pg (27.0-31.0) L 03/08/18 08:07 MCHC 32.7 g/dL (33.0-37.0) L 03/08/18 08:07 RDW 14.3 % (11.5-14.5) 03/08/18 08:07 Plt Count 344 K/uL (130-400) 03/08/18 08:07 MPV 7.6 fL (7.2-11.7) 03/08/18 08:07 Neut % (Auto) 70.6 % (50.0-75.0) 03/08/18 08:07 Lymph % (Auto) 19.7 % (20.0-40.0) L 03/08/18 08:07 [place] % (Auto) 8.3 % (0.0-10.0) 03/08/18 08:07 Eos % (Auto) 1.1 % (0.0-4.0) 03/08/18 08:07 Baso % (Auto) 0.3 % (0.0-2.0) 03/08/18 08:07 Neut # (Auto) 6.7 K/uL (1.8-7.0) 03/08/18 08:07 Lymph # (Auto) 1.9 K/uL (1.0-4.3) 03/08/18 08:07 [place] # (Auto) 0.8 K/uL (0.0-0.8) 03/08/18 08:07 Eos # (Auto) 0.1 K/uL (0.0-0.7) 03/08/18 08:07 Baso # (Auto) 0.0 K/uL (0.0-0.2) 03/08/18 08:07 PT 16.0 SECONDS (9.7-12.2) H 03/06/18 18:41 INR 1.5 03/06/18 18:41 APTT 37 SECONDS (21-34) H 03/06/18 18:41 Sodium 137 mmol/L (132-148) 03/13/18 07:07 Potassium 4.1 mmol/L (3.6-5.2) 03/13/18 07:07 Chloride 104 mmol/L (98-107) 03/13/18 07:07 Carbon Dioxide 27 mmol/L (22-30) 03/13/18 07:07 Anion Gap 10 (10-20) 03/13/18 07:07 BUN 8 mg/dL (9-20) L 03/13/18 07:07 Creatinine 0.8 mg/dL (0.8-1.5) 03/13/18 07:07 Est GFR ( Amer) > 60 03/13/18 07:07 Est GFR (Non-Af Amer) > 60 03/13/18 07:07 Random Glucose 112 mg/dL (75-110) H 03/13/18 07:07 Calcium 8.2 mg/dl (8.6-10.4) L 03/13/18 07:07 Total Bilirubin 0.5 mg/dL (0.2-1.3) 03/13/18 07:07 AST 29 U/L (17-59) 03/13/18 07:07 ALT 26 U/L (21-72) 03/13/18 07:07 Alkaline Phosphatase 63 U/L (38-126) 03/13/18 07:07 Total Protein 6.9 g/dL (6.3-8.3) 03/13/18 07:07 Albumin 3.6 g/dL (3.5-5.0) 03/13/18 07:07 Globulin 3.3 gm/dL (2.2-3.9) 03/13/18 07:07 Albumin/Globulin Ratio 1.1 (1.0-2.1) 03/13/18 07:07 Lipase 15 U/L (23-300) L 03/06/18 18:41 Urine Color Yellow (YELLOW) 03/06/18 19:07 Urine Clarity Clear (Clear) 03/06/18 19:07 Urine pH 5.0 (5.0-8.0) 03/06/18 19:07 Ur Specific [place] 1.023 (1.003-1.030) 03/06/18 19:07 Urine Protein Negative mg/dL (NEGATIVE) 03/06/18 19:07 Urine Glucose (UA) Normal mg/dL (Normal) 03/06/18 19:07 Urine Ketones Negative mg/dL (NEGATIVE) 03/06/18 19:07 Urine Blood Negative (NEGATIVE) 03/06/18 19:07 Urine Nitrate Negative (NEGATIVE) 03/06/18 19:07 Urine Bilirubin Negative (NEGATIVE) 03/06/18 19:07 Urine Urobilinogen Normal mg/dL (0.2-1.0) 03/06/18 19:07 Ur Leukocyte Esterase Trace [place]/uL (Negative) 03/06/18 19:07 Urine WBC (Auto) 1 /hpf (0-5) 03/06/18 19:07 Urine RBC (Auto) 1 /hpf (0-3) 03/06/18 19:07 Ur Squamous Epith Cells < 1 /hpf (0-5) 03/06/18 19:07 - Hospital Course Hospital Course: 27 years old male with no previous history complaining of left quadrant pain. Patient presented to [facility] where CAT scan of the abdomen was done which shows diverticulitis of the sigmoid colon. Patient was given by mouth Cipro and Flagyl and discharged home. Patient's pain increased in intensity and severity with crampy diarrhea and patient presented back to [facility]. His repeat CAT scan of the abdomen showed sigmoid diverticulitis with 6 significant sigmoid diverticulosis. Patient is now admitted in [facility] for IV antibiotics and manage acute diverticulitis. Patient was admitted on the medical floor. Patient received IV fluids and IV antibiotic as per infectious disease specialist. Patient improved on above therapy repeat CAT scan still showed sigmoid diverticulitis with no complication. Currently patient is stable is a regular diet without any abdominal pain patient will be discharged on by mouth antibiotic as per ID and will be followed outpatient with a repeat CAT scan done 2 weeks. Discharge Exam - Head Exam Head Exam: NORMAL INSPECTION Discharge Plan - Follow Up Plan Condition: STABLE Disposition: HOME/ ROUTINE Instructions: Diverticulitis (DC)
== END 2018-03-13 15:46 | disposition home or self-care (01) | DRG 392 ==
LOC: C.ER 15:51 → C.9E 21:19 → C.6T 03-07 02:20
PROVIDERS: ADMIT Internal Medicine Cardiovascular Disease; ATTEND Internal Medicine Cardiovascular Disease
DX: K57.32 Diverticulitis of large intestine without perforation or abscess without bleeding (principal); Z68.43 Body mass index [BMI] 50.0-59.9, adult; E66.01 Morbid (severe) obesity due to excess calories